=== PATIENT | male | born 1950 | race Caucasian/White ===

== ENCOUNTER 2022-10-30 08:57 | Outpatient (REF) | payer MEDICARE, OTHER, SELFPAY ==
--- NOTE | ~2022-10-30 | XR_ITS ---
EXAMINATION: XR knee , XR Terell right 3V CLINICAL INFORMATION: Male of 72 years with Pain in right knee COMPARISON: None TECHNIQUE: Four views of the right knee. FINDINGS: Bones are well-mineralized. There is spurring of the medial tibial plateau and medial femoral condyle. There is narrowing of patellofemoral compartment with trace of joint effusion. XR/XR knee LT 3V IMPRESSION: Mild changes of osteoarthritis and trace of joint effusion
--- NOTE | ~2022-10-30 | XR_ITS ---
EXAMINATION: XR knee , XR Terell right 3V CLINICAL INFORMATION: Male of 72 years with Pain in right knee COMPARISON: None TECHNIQUE: Four views of the right knee. FINDINGS: Bones are well-mineralized. There is spurring of the medial tibial plateau and medial femoral condyle. There is narrowing of patellofemoral compartment with trace of joint effusion. XR/XR knee RT 3V IMPRESSION: Mild changes of osteoarthritis and trace of joint effusion
== END 2022-10-30 08:58 | disposition home or self-care (01) ==
LOC: HO.HOSX 08:57
PROVIDERS: Visit Provider Orthopaedic Surgery
DX: M25.562 Pain in left knee (principal); M25.561 Pain in right knee
CPT/HCPCS: 73562; 99212

== ENCOUNTER 2022-10-30 09:50 | Outpatient (AMB) | payer MEDICARE, SELFPAY ==
--- NOTE | 2022-10-30 09:57 | A.OFFVIS_ITS ---
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 Piedra for an evaluation of bilateral knee pain. Xrays obtained in office. Patient reports pain has been present for years. Patient has tried cortisone and gel injections in the past, states gel injection provides him with relief. Has tried and failed PT & NSAID's. Finds little relief with Tylenol. The patient describes his pains as sharp and severe in nature. His last set of cortisone injections gave him minimal relief. He has gotten good relief from viscosupplementation injections. He wishes to hold off on total knee repl acement surgery for as long as possible. 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 Physical Exam Vital Signs: BMI result Body Mass Index 25.0 Const Other: Well-nourished well-developed very friendly male awake alert and oriented x3 in no acute distress Extrem Other: Bilateral lower extremity examination shows good capillary refill, no skin lesions noted, normal sensation light touch Bilateral knee examination shows minimal effusions, palpable crepitus with range of motion, pain with range of motion, range of motion from -3 degrees to 115 degrees, no instability Results Reviewed Results Reviewed: X-rays of the patient's bilateral knees taken today show moderate diffuse joint space narrowing, subchondral sclerosis, no acute bony abnormalities Assessment & Plan Assessment & Plan (1) Arthritis of left knee: Code(s): M17.12 - Unilateral primary osteoarthritis, left knee (2) Arthritis of right knee: Code(s): M17.11 - Unilateral primary osteoarthritis, right knee Plan Mr. Montoya presents with progressively worsening bilateral knee pains due to degenerative joint disease. I had a lengthy discussion with the patient navi eucedaing the treatment options. He wishes to hold off on surgery for as long as possible. I agree with this plan. He has not gotten good relief from cortisone injections in the recent past. He has gotten good relief from viscosupplementation injections. Thus, I will see whether not his insurance company will cover a viscosupplementation injection for both of his knees. I will see him back once the injections are available. If he fails continued non operative treatments we will further discuss the risks and benefits of total knee replacement surgery. The patient will follow-up as instructed. I spent 22 minutes in reviewing the patient's records and imaging studies, seeing the patient and documenting in the medical record. Orders: Orders XR knee LT 3V Today M25.562 - Pain in left knee XR knee RT 3V Today M25.561 - Pain in right knee Coding Level of Care Code Est Pt Level 2 (05305) Diagnoses Arthritis of left knee M17.12 Arthritis of right knee M17.11
[2022-10-30 10:00] VITALS: BMI 25.0
== END 2022-10-30 10:58 | disposition home or self-care (01) ==
PROVIDERS: Visit Provider Orthopaedic Surgery
DX: M17.0 Bilateral primary osteoarthritis of knee (principal)
CPT/HCPCS: 99212

== ENCOUNTER 2022-11-28 09:34 | Outpatient (AMB) | payer MEDICARE, OTHER, SELFPAY ==
--- NOTE | 2022-11-28 09:36 | MHC.OFFVIS ---
Intake Vital Signs 11/28/22 09:37 Height 6 ft Weight 184 lb BMI 25.0 Intake Visit Reasons: Ov- B/L KNEE INJ Intake Note: Cliff is a 18 year old male who presents with complaints of progressively worsening bilateral knee pains. He describes his pains as sharp in nature. He has had cortisone injections in the past which gave him minimal relief. He has tried Tylenol and anti-inflammatory medicines which gave him only temporary relief. He has also done physical therapy for 12 weeks over the last 6 months which aggravated his pain. He wishes to hold off on surgery for as long as possible. 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 Physical Exam Vital Signs: BMI result Body Mass Index 25.0 Const Other: Well-nourished well-developed very friendly male awake alert and oriented x3 in no acute distress Extrem Other: Bilateral lower extremity examination shows good capillary refill, no skin lesions noted, normal sensation light touch Bilateral knee examination shows minimal effusions, palpable crepitus with range of motion, pain with range of motion, range of motion from -3 degrees to 115 degrees, no instability Office Procedures Joint Injection/Drain Joint Injection/Drain Primary Site: left knee Prep: site was prepped using aseptic technique Injected: 20 mg of (Durolane) Procedure: The patient tolerated the procedure well Coding 79316 - Large joint Procedure code (CPT) selection complete Joint Injection/Drain Joint Injection/Drain Primary Site: right knee Prep: site was prepped using aseptic technique Injected: 20 mg of (Durolane) Procedure: The patient tolerated the procedure well Coding 00333 - Large joint Procedure code (CPT) selection complete Results Reviewed Results Reviewed: 11/28/22 09:34 Hyaluronate Sodium, Stabilized [Durolane] 60 mg INTRAARTIC .[facility] 11/28/22 09:45 Lidocaine HCl 2 % MPF [Xylocaine 2 % MPF] 5 ml .[facility]TE .[facility] X-rays of the patient's bilateral knee show joint space narrowing, subchondral sclerosis, no acute bony abnormalities Assessment & Plan Assessment & Plan (1) Arthritis of left knee: Code(s): M17.12 - Unilateral primary osteoarthritis, left knee (2) Arthritis of right knee: Code(s): M17.11 - Unilateral primary osteoarthritis, right knee Plan: Mr. Montoya presents with bilateral knee pains due to degenerative joint disease. I had a lengthy discussion with the patient regarding the treatment options. He wishes to hold off on surgery for as long as possible. I agree with this plan. He has not gotten good relief from cortisone injections in the past. Thus, the risks and benefits of bilateral Durolane viscosupplementation injections were discussed at length with the patient. The patient wished to proceed. He tolerated the injections well. He will continue with his activity modifications. He will follow up with me on an as-needed basis should his symptoms not plateau at an unacceptable level over the next few months. Feel free to call me at any time should questions regarding his orthopedic management arise. I spent 22 minutes in reviewing the patient's records and imaging studies, seeing the patient and documenting in the medical record. Orders: Orders AMB Joint Injection/Aspiration Today M17.12 - Unilateral primary osteoarthritis, left knee AMB Joint Injection/Aspiration Today M17.11 - Unilateral primary osteoarthritis, right knee Coding Level of Care Code Est Pt Level 2 (69323) Diagnoses Arthritis of left knee M17.12 Arthritis of right knee M17.11 CPT Codes Coding - 26242 Large joint: 22263 - Large joint ([id number]) Coding - 16494 Large joint: 45831 - Large joint ([id number])
[2022-11-28 09:37] VITALS: BMI 25.0
== END 2022-11-28 10:05 | disposition home or self-care (01) ==
PROVIDERS: Visit Provider Orthopaedic Surgery
DX: M17.0 Bilateral primary osteoarthritis of knee (principal)
CPT/HCPCS: 20610; 99214

== ENCOUNTER → 2022-11-28 09:34 | Outpatient (BNVA) | payer MEDICARE, OTHER, SELFPAY | PROVIDERS: Visit Provider Orthopaedic Surgery | DX: M17.0 Bilateral primary osteoarthritis of knee (principal) | CPT/HCPCS: 20610; J7318 ==

== ENCOUNTER 2024-01-02 09:10 | Outpatient (AMB) | payer MEDICARE, SELFPAY ==
--- NOTE | 2024-01-02 09:17 | A.OFFVIS_ITS ---
Intake Visit Reasons: Bilateral knee pains Intake Note: Cliff is a 73 year old male who presents with complaints of progressively worsening bilateral knee pains. The patient describes his pains as sharp in nature. His pains have gotten worse over the last 6 months in spite of continued non operative treatments. He has failed the last 3 months of conservative treatment which includes a home exercise program, anti-inflammatory medicines and Tylenol. He has had cortisone injections in the past which gave h im minimal relief. He also had bilateral knee Durolane injections given on 11/28/2022. He got very good relief from those injections. He wishes to hold off on surgery for as long as possible. 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 Physical Exam Const Other: Well-nourished well-developed very friendly male awake alert and oriented x3 in no acute distress Extrem Other: Bilateral lower extremity examination shows good capillary refill, no skin lesions noted, normal sensation light touch Bilateral knee examination shows minimal effusions, palpable crepitus with range of motion, pain with range of motion, no instability Office Procedures Joint Injection/Aspiration Joint Injection/Aspiration Primary Site: left knee Prep: site was prepped using aseptic technique Injected: 60 mg of (Durolane viscosupplementation) and 1% plain lidocaine Procedure: The patient tolerated the procedure well Coding 01281 - Large joint Procedure code (CPT) selection complete Joint Injection/Aspiration Joint Injection/Aspiration Primary Site: right knee Prep: site was prepped using aseptic technique Injected: 60 mg of (Durolane viscosupplementation) and 1% plain lidocaine Procedure: The patient tolerated the procedure well Coding 59719 - Large joint Procedure code (CPT) selection complete Results Reviewed Results Reviewed: X-rays of the patient's bilateral knee show joint space narrowing, subchondral sclerosis, no acute bony abnormalities Assessment & Plan Assessment & Plan (1) Osteoarthritis of left knee: Code(s): M17.12 - Unilateral primary osteoarthritis, left knee Category: Medical (2) Osteoarthritis of right knee: Code(s): M17.11 - Unilateral primary osteoarthritis, right knee Category: Medical Plan Mr. Montoya presents with bilateral knee pains due to osteoarthritis. I had a lengthy discussion with the patient regarding the treatment options. The risks and benefits of bilateral knee Durolane viscosupplementation injections were discussed at length with the patient. The patient wished to proceed. He tolerated the injections well. He will continue with his home exercise program. He will follow up with me on an as-needed basis should his symptoms not plateau at an unacceptable level over the next few months. Feel free to call me at any time should questions regarding his orthopedic management arise. I spent 22 minutes in reviewing the patient's records and imaging studies, seeing the patient and documenting in the medical record. Orders: Orders AMB Joint Injection/Aspiration Today M17.12 - Unilateral primary osteoarthritis, left knee AMB Joint Injection/Aspiration Today M17.11 - Unilateral primary osteoarthritis, right knee Coding Level of Care Code Est Pt Level 3 (88270) Complex EM visit Add On G2211 Diagnoses Osteoarthritis of left knee M17.12 Osteoarthritis of right knee M17.11 CPT Codes Coding - 89916 Large joint: 24859 - Large joint ([id number]) Coding - 70280 Large joint: 42454 - Large joint ([id number])
== END 2024-01-02 09:39 | disposition home or self-care (01) ==
PROVIDERS: Visit Provider Orthopaedic Surgery
DX: M17.0 Bilateral primary osteoarthritis of knee (principal); M17.11 Unilateral primary osteoarthritis, right knee
CPT/HCPCS: 20610; 99213

== ENCOUNTER → 2024-01-02 09:10 | Outpatient (BNVA) | payer MEDICARE, SELFPAY | PROVIDERS: Visit Provider Orthopaedic Surgery | DX: M17.0 Bilateral primary osteoarthritis of knee (principal) | CPT/HCPCS: 20610; 99212; J2003; J7318 ==

== ENCOUNTER 2024-01-17 12:50 | Outpatient (REF) | payer MEDICARE, SELFPAY | END 2024-01-17 12:51 | disposition home or self-care (01) | LOC: HO.HOSX 12:50 | PROVIDERS: Visit Provider Neurological Surgery | DX: M43.16 Spondylolisthesis, lumbar region (principal); M48.062 Spinal stenosis, lumbar region with neurogenic claudication | CPT/HCPCS: 72110; 99202 ==

== ENCOUNTER 2024-01-17 12:50 | Outpatient (AMB) | payer MEDICARE, SELFPAY ==
--- NOTE | 2024-01-17 12:59 | A.SPINEOV_ITS ---
Intake Visit Reasons: low back pain Intake Note: Mr. Montoya is here today c/o low back pain. Deaf/Hard Of Hearing Specialist Required: No Allergies No Known Allergies Allergy (Verified 01/02/24 09:17) Assessment & Plan Assessment & Plan (1) Spondylolisthesis, lumbar region: Code(s): M43.16 - Spondylolisthesis, lumbar region Category: Medical Plan: Dear colleague Thank you for referring Cliff Montoya to the office today with a chief complaint of bilateral leg pain. 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 He presented with pain radiating down his legs predominantly with walking and standing. Sitting or laying down improves the symptoms. Imaging reviewed an L4-5 spondylolisthesis and associated severe spinal stenosis. He was offered surgery but he postponed the surgery as it was interfering with his work activities. Currently, the pain is interfering with his daily activities. He tried physical therapy and L4-[address] Caba without success. [id number] anti-inflammatories and Tylenol are not helpful. He is ready for more permanent solution PMH: Hypercholesterolemia, hypertension Medications: Atorvastatin, lisinopril, Mirabegron Allergies: NKDA Social history: . Nonsmoker Physical Exam: Pleasant male. Height 6 ft weight 184 lb with a BMI of 25. Neurological exam is intact for motor sensation and reflexes. Radiological Studies: MRI done at [facility] in 2021 shows a grade 1-2 L4-5 spondylolisthesis and associated severe L4-5 spinal stenosis. Impression/Plan: This patient is suffering from neurogenic claudication from spinal stenosis. We need updated imaging before I can offer him a surgical intervention. I ordered an dynamic lumbar x-ray and an MRI of the lumbar spine will be done at [facility]. He will ever return visit to review the imaging and to discuss the plan of care. Most likely he will need an oblique lumbar interbody fusion L4-5. Thank you for allowing me to participate in your patients care. total time spent was 30 minutes in counseling ,coordination of plan, personal review of imaging, surgical decision making and subsequent plan George Benitez MD, PhD Spine Fellowship Trained Neurosurgeon Director, [facility] (2) Lumbar stenosis with neurogenic claudication: Code(s): M48.062 - Spinal stenosis, lumbar region with neurogenic claudication Category: Medical Plan 54 Orders: Orders XR lumbar spine 4V min Today M43.16 - Spondylolisthesis, lumbar region MR lumbar spine wo con Today M43.16 - Spondylolisthesis, lumbar region Coding Level of Care Code New Pt Level 3 (22137) Diagnoses Spondylolisthesis, lumbar region M43.16 Lumbar stenosis with neurogenic claudication M48.062
== END 2024-01-17 14:05 | disposition home or self-care (01) ==
PROVIDERS: Visit Provider Neurological Surgery
DX: M43.16 Spondylolisthesis, lumbar region (principal); M48.062 Spinal stenosis, lumbar region with neurogenic claudication
CPT/HCPCS: 99203

== ENCOUNTER 2024-04-07 09:13 | Outpatient (AMB) | payer MEDICARE, SELFPAY ==
--- NOTE | 2024-04-07 09:14 | MHC.OFFVIS ---
Vital Signs 04/07/24 09:18 Height 6 ft Weight 184 lb BMI 25.0 Intake Visit Reasons: Right knee pain Intake Note: Cliff is a 73 year old male who presents with complaints of progressively worsening bilateral knee pains, right greater than left. He describes his right knee pain as sharp and severe in nature, 10/10. His knee pains have gotten worse over the last few years in spite of continued non operative treatments. He has tried physical therapy exercises which aggravated his pain. He has also had both cortisone injections and Durolane injections which gave him minimal relief. The patient has difficulty walking even short distances because of his right knee pain. He has tried Tylenol and anti-inflammatory medicines which gave him only mild relief. At this point his right knee pain is interfering with his activities of daily living and his ability to sleep well through the night. 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 Physical Exam Vital Signs: BMI result Body Mass Index 25.0 Const Other: Well-nourished well-developed very friendly male awake alert and oriented x3 in no acute distress Extrem Other: Bilateral lower extremity examination shows good capillary refill, no skin lesions noted, normal sensation light touch Right knee examination shows a minimal effusion, palpable crepitus with range of motion, pain with range of motion, range of motion from -3 degrees to 115 degrees, no instability Results Reviewed Results Reviewed: X-rays of the patient's right knee taken previously show end-stage degenerative joint disease with grade 4 [id number] arthritis, subchondral sclerosis, osteophyte formation, no acute bony abnormalities Assessment & Plan Assessment & Plan (1) Right knee pain: Code(s): M25.561 - Pain in right knee Category: Medical (2) Arthritis of right knee: Code(s): M17.11 - Unilateral primary osteoarthritis, right knee Category: Medical Plan Mr. Montoya presents with progressively worsening right knee pain due to end-stage degenerative joint disease. I had a lengthy discussion with the patient regarding the treatment options. At this point he has failed continued non operative treatments. The risks and benefits of right total knee replacement surgery were discussed at length with the patient. The patient wishes to proceed with surgery. He will be scheduled for next available date. He will follow-up as instructed. Feel free to call me at any time should questions regarding his orthopedic management arise. I spent 21 minutes in reviewing the patient's records and imaging studies, seeing the patient and documenting in the medical record. Coding Level of Care Code Est Pt Level 3 (75872) Complex EM visit Add On G2211 Diagnoses Right knee pain M25.561 Arthritis of right knee M17.11
[2024-04-07 09:18] VITALS: BMI 25.0
--- OUTSIDE RECORDS SUMMARY | 2024-04-07 09:30 | XMS_ITS ---
Author Name [facility] Organization Unknown Results Test Name/Text Value Interpretation Date Range Source Hgb A1c MFr Bld HPLC 5.9% Above high normal [id number] 5 - 5.[address] [facility] CREAT SERPL [facility] 1.1mg/dL Normal [id number] 0.7 - 1.3 [facility] CALCIUM SERPL [facility]NC 9.6mg/dL Normal [id number] 8.4 - 10 .[address] [facility] SODIUM SERPL SCNC 140mmol/L Normal [id number] 135 - [address] [facility] ANION GAP SERPL [facility] 7mmol/L Normal [id number] 5 - [address] [facility] Glomerular filtration rate/1.73 sq M. predicted 71 Normal [id number] 60 - [facility] HCO3 SER SCNC 31mmol/L Normal [id number] 24 - [address] [facility] GLUCOSE P FAST SERPL [facility]NC 96mg/dL Normal [id number] 70 - [address] [facility] BUN SERPL [facility] 19mg/dL Normal [id number] 9 - 20 [facility] CHLORIDE SERPL [facility]NC 102mmol/L Normal [id number] 98 - 10 7 [facility] POTASSIUM SERPL SCNC 4mmol/L Normal [id number] 3.5 - 5.[address] [facility] LDLc SerPl Calc-mCnc 38mg/dL Below low normal [id number] 50 - [address] [facility] TRIGL SERPL-MCNC 96mg/dL Normal [id number] - 150 [facility] CHOLEST SERPL-MCNC 91mg/dL Normal [id number] 0 - [address] [facility] HDLC SERPL-MCNC 34mg/dL Normal [id number] 32 - [address] DIFFERENTIAL TYPE AUTOMATED Normal [id number] [facility] PLATELET NO. BLD AUTO 217K/uL Normal [id number] 150 - [address] [facility] RBC NO. BLD AUTO 5.56M/uL Normal [id number] 4.7 - 6 [facility] LYMPHOCYTES NO. BLD AUTO 2.3K/uL Normal [id number] 1 - 3.[address] [facility] EOSINOPHIL NO. BLD AUTO 0.1K/uL Normal [id number] 0 - 0.[address] [facility] MCH RBC QN AUTO 31.6pg Normal [id number] 25 - [address] [address] MCHC RBC AUTO MCNC 34.5g/dL Normal [id number] 32 - [address] [facility] MONOCYTES NFR BLD AUTO 10% Normal [id number] 2 - [address] LYMPHOCYTES NFR BLD AUTO 37.1% Normal [id number] 20 - [address] [facility] EOSINOPHIL NFR BLD AUTO 1.6% Normal [id number] 0 - [address] [facility] HGB BLD MCNC 17.6g/dL Normal 13.5 - 18 [facility] NEUTROPHILS NO. BLD AUTO 3.1K/uL Normal [id number] 1. 8 - 7.[address] [facility] WBC NO. BLD AUTO 6.2K/uL Normal [id number] 4 - 10.[address] [facility] BASOPHILS NFR BLD AUTO 0.6% Normal [id number] 0 - [address] [facility] MONOCYTES NO. BLD AUTO 0.6K/uL Normal [id number] 0 - 0.[address] [facility] MCV RBC AUTO 91.6fL Normal [id number] 78 - 100 [facility] NEUTROPHILS NFR BLD AUTO 50.7% Normal [id number] 44 - [address] [facility] BASOPHILS IN BLOOD BY AUTOMATED COUNT 0K/uL Normal [id number] 0 - 0.[address] [facility] PMV BLD AUTO 8.4fL Normal [id number] 7.4 - 11.[address] [facility] [facility] RDW RBC AUTO RTO 13.2% Normal [id number] 12.1 - 17. [address] [facility] HCT VFR BLD AUTO 50.9% Normal [id number] 40 - [address] [facility] History of Medication Use Medication Directions Dispensed Refills Start Date End Date [facility] fesoterodine 8 mg tablet extended release 24 hr Take 1 tablet by mouth 1 (one) time each day. 03/21/2024 9 active furosemide (LASIX) 40 mg tablet Take 1 tablet (40 mg total) by mouth 1 (one) time each day. 03/21/2024 9 active triamcinolone (KENALOG) 0.1 % cream Apply 1 Application topically 2 (two) times a day. 03/21/2024 9 active traMADoL (ULTRAM) 50 mg tablet Take 1 tablet (50 mg total) by mouth every 6 (six) hours if needed for severe pain. Max Daily Amount: 200 mg 03/21/2024 active hydroCHLOROthiazide (MICROZIDE) 12.5 mg capsule Take 1 capsule (12.5 mg total) by mouth 1 (one) time each day in the morning. 03/21/2024 active atorvastatin (LIPITOR) 40 mg tablet Take 1 tablet (40 mg total) by mouth 1 (one) time each day. 03/21/2024 9 active glucosamine-chondroitin 500-400 mg capsule Take by mouth daily. 2 tabs 03/21/2024 active aspirin 81 mg EC tablet Take 1 tablet (81 mg total) by mouth 1 (one) time each day. 03/21/2024 active acetaminophen (TYLENOL) 500 mg capsule Take 2 tablets by mouth daily. 03/21/2024 9 active clotrimazole (LOTRIMIN) 1 % cream Apply 1 Application topically 2 (two) times a day. Apply in between toes and affected toes 03/21/2024 9 active tadalafiL (CIALIS) 20 mg tablet Take 1 tablet (20 mg total) by mouth daily as needed for erectile dysfunction. 03/21/2024 9 active mirabegron (Myrbetriq) 50 mg tablet extended release 24 hr 24 hr tablet Take 1 tablet (50 mg total) by mouth 1 (one) time each day. 03/21/2024 9 active multivitamin (MULTIPLE VITAMINS ORAL) Take by mouth. 03/21/2024 9 active Gemtesa 75 mg tablet tablet Take 1 tablet (75 mg total) by mouth 1 (one) time each day. 03/21/2024 9 active amLODIPine (NORVASC) 10 mg tablet Take 1 tablet (10 mg total) by mouth 1 (one) time each day. 03/21/2024 9 active oxyBUTYnin (DITROPAN) 5 mg tablet Take 1 tablet (5 mg total) by mouth 2 (two) times a day. 03/21/2024 active solifenacin (VESICARE) 10 mg tablet Take 1 tablet (10 mg total) by mouth 1 (one) time each day. 03/21/2024 active Acetaminophen 500 MG coapsule Take 2 tablets by mouth every evening. 10/14/2023 active hydroCHLOROthiazide (MICROZIDE) 12.5 MG capsule TAKE 1 CAPSULE(12.5 MG) BY MOUTH DAILY 10/14/2023 active atorvastatin (LIPITOR) tablet 40 mg Take 1 tablet (40 mg total) by mouth daily. 10/14/2023 active tadalafil (CIALIS) 20 MG tablet Take 1 tablet (20 mg total) by mouth daily as needed for erectile dysfunction. 10/14/2023 active Glucosamine-Chondroitin 500-400 MG CAPS Take by mouth daily. 2 tabs 10/14/2023 active ASPIRIN ADULT LOW STRENGTH PO Take 81 mg by mouth daily. 10/14/2023 active sildenafil (Viagra) 100 MG tablet Take 1 tablet (100 mg total) by mouth as needed for erectile dysfunction. 10/14/2023 active Multiple Vitamins-Minerals (MULTIVITAMIN ADULTS PO) Take by mouth. 10/14/2023 active Vibegron (Gemtesa) 75 MG TABS Take 75 mg by mouth daily. 10/14/2023 active Vibegron (Gemtesa) 75 MG TABS Take 75 mg by mouth daily. 10/10/2023 active hydroCHLOROthiazide (MICROZIDE) 12.5 MG capsule TAKE 1 CAPSULE(12.5 MG) BY MOUTH DAILY 10/10/2023 active methocarbamol (ROBAXIN) 750 MG tablet Take 1 tablet (750 mg total) by mouth 2 (two) times a day as needed. 10/10/2023 active sildenafil (Viagra) 100 MG tablet Take 1 tablet (100 mg total) by mouth as needed for erectile dysfunction. 10/10/2023 active hydroCHLOROthiazide (MICROZIDE) 12.5 MG capsule Take 1 capsule (12.5 mg total) by mouth daily. 06/21/2023 active Mirabegron ER (Myrbetriq) 50 MG TB24 Take 1 tablet by mouth daily. 06/21/2023 active atorvastatin (LIPITOR) tablet 40 mg Take 1 tablet (40 mg total) by mouth daily. 06/21/2023 active clotrimazole (LOTRIMIN) 1 % cream Apply topically 2 (two) times a day. Apply in between toes and affected toes 05/05/2023 active lisinopril (PRINIVIL,ZESTRIL) tablet 20 mg TAKE 1 TABLET BY MOUTH DAILY 04/06/2023 aborted amLODIPine (NORVASC) tablet 10 mg Take 1 tablet (10 mg total) by mouth daily. 04/06/2023 aborted Multiple Vitamins-Minerals (MULTIVITAMIN ADULTS PO) Take by mouth. 04/06/2023 active furosemide (Lasix) 40 MG tablet Take 1 tablet (40 mg total) by mouth daily. 05/11/2023 aborted Myrbetriq 50 MG TB24 TAKE 1 TABLET BY MOUTH DAILY 04/06/2023 aborted furosemide (Lasix) 20 MG tablet Take 1 tablet (20 mg total) by mouth daily for 2 days. 05/05/2023 active oxybutynin (DITROPAN) 5 MG tablet Take 1 tablet (5 mg total) by mouth 3 (three) times a day as needed. Please begin to take 3 X A DAY ONLY NEEDED AFTER YOUR UROLIFT PROCEDURE 04/06/2023 aborted Glucosamine-Chondroitin 500-400 MG CAPS Take by mouth daily. 2 tabs 04/06/2023 active phenazopyridine (Pyridium) 200 MG tablet Take 1 tablet (200 mg total) by mouth 3 (three) times a day as needed. Please begin to take 3 X A DAY ONLY NEEDED AFTER YOUR UROLIFT PROCEDURE. 04/06/2023 aborted triamcinolone (KENALOG) 0.1 % cream Apply topically 2 (two) times a day. 05/05/2023 active Acetaminophen 500 MG coapsule Take 2 tablets by mouth daily. 04/06/2023 active ASPIRIN ADULT LOW STRENGTH PO Take 81 mg by mouth daily. 04/06/2023 active atorvastatin (LIPITOR) tablet 40 mg TAKE 1 TABLET BY MOUTH DAILY 04/06/2023 aborted tadalafil (CIALIS) 20 MG tablet Take 1 tablet (20 mg total) by mouth daily as needed for erectile dysfunction. 04/06/2023 active Problems Problem Status Onset Date Problem Type Date of Resolution Source Neck pain active EncounterDiagnosisAct [facility] Prediabetes active EncounterDiagnosisAct [facility] Encounter for long-term (current) use of other medications active EncounterDiagnosisAct [facility] H Lumbar stenosis without neurogenic claudication active 2021-07-18 ProblemAct [facility] Enlarged prostate active 2022-10-04 ProblemAct [facility] Rhinorrhea active 2023-04-05 ProblemAct [facility] Chronic cough active 2023-04-05 ProblemAct [facility] Subclavian arterial stenosis active 2020-01-29 ProblemAct [facility] Essential hypertension active 2020-01-29 ProblemAct [facility] S/P prostatectomy active 2022-10-04 ProblemAct [facility] Side effect of drug active 2023-05-03 ProblemAct [facility] Mixed hyperlipidemia active 2020-01-29 ProblemAct [facility] Immunizations Vaccine Date Source Lot Number Status Influenza Quadravalent, 0.5m l (Fluzone High-dose) 65yo and older 02/02/2022 [facility] comple rodo Td Tetanus diptheria, preser vative free (Tenivac) 7yo and older 07/31/2021 [facility] [id number] complete d Pfizer SARS-CoV-2 COVID-19, mRNA, LNP-S, preservative free 02/01/2021 [facility] completed Influenza Quadravalent, 0.5m l (Fluad) 65yo and older 01/11/2021 [facility] completed Pfizer SARS-CoV-2 COVID-19, mRNA, LNP-S, preservative free 07/09/2021 [facility] completed Zoster recombinant (Shingrix ) 19yo and older 11/14/2019 [facility] completed Moderna SARS-CoV-2 COVID-19, mRNA, LNP-S, preservative free 04/11/2020 [facility] completed Influenza Quadravalent, 0.5m l (Fluad) 65yo and older 03/08/2023 [facility] completed Tdap Tetanus diptheria acell ular pertussis (Boostrix; Adacel) 7yo and older 07/31/2021 [facility] completed Zoster recombinant (Shingrix ) 19yo and older 09/14/2019 [facility] completed Pneumococcal polysaccharide 23 valent (Pneumovax 23) 2yo and older 07/31/2021 [facility] [id number] [facility] pleted Moderna SARS-CoV-2 COVID-19, mRNA, LNP-S, preservative free 05/06/2020 [facility] completed Influenza Quadravalent, 0.5m l (Fluzone High-dose) 65yo and older 01/08/2021 [facility] comple rodo Pneumococcal conjugate 20 va lent (Prevnar 20, PCV 20) 2mo and older 10/04/2022 [facility] PREVNAR 20 comple rodo
== END 2024-04-07 10:03 | disposition home or self-care (01) ==
PROVIDERS: Visit Provider Orthopaedic Surgery
DX: M25.561 Pain in right knee (principal); M17.11 Unilateral primary osteoarthritis, right knee
CPT/HCPCS: 99213; G2211

== ENCOUNTER → 2024-04-07 09:13 | Outpatient (BNVA) | payer MEDICARE, SELFPAY | PROVIDERS: Visit Provider Orthopaedic Surgery | DX: M17.11 Unilateral primary osteoarthritis, right knee (principal); M25.562 Pain in left knee | CPT/HCPCS: 99212 ==